=== PATIENT | female | born 1945 | race Two or more races ===

== ENCOUNTER 2023-08-30 12:47 | Inpatient (IN) | payer OTHER ==
[~2023-08-30] VITALS: Ht 167.6 cm; Wt 117.0 kg
[2023-08-30] MEDS ORDERED: VANCOMYCIN HCL 1000 MG VL ONE (13:55)
[2023-08-30] MEDS ORDERED: TRANEXAMIC ACID 20 ML ONE (13:56)
[2023-08-30] MEDS ORDERED: BUPIVACAINE 0.25% INJ 50ML VIAL ONE ×3 (13:56→16:37)
[2023-08-30] MEDS ORDERED: ceFAZolin 2 GM/D5W50ml 50 ML IV ONE (13:56)
[2023-08-30] MEDS ORDERED: KETOROLAC TROMETH 30 MG/ML 1ML VIAL ONE (14:00)
[2023-08-30] MEDS ORDERED: MORPHINE SULF PF 5 MG/10 ML VIAL ONE (14:00)
[2023-08-30] MEDS ORDERED: CELECOXIB 100 MG CAP ONE (14:09)
[2023-08-30] MEDS ORDERED: fentaNYL CITRATE 100 MCG/2 ML VL ONE (14:37)
[2023-08-30] MEDS ORDERED: MIDAZOLAM HCL 2MG/2ML 2ml VIAL (1mg/ml) ONE (14:38)
[2023-08-30] MEDS: PREGABALIN CAPSULE 75 MG CAP PO ONE (14:40)
[2023-08-30] MEDS: ACETAMINOPHEN IV 1000 MG/100ML (10MG/ML) IV ONE (14:40)
[2023-08-30] MEDS: CELECOXIB 100 MG CAP PO ONE (14:40)
[2023-08-30] MEDS ORDERED: PROPOFOL 10 MG/ML 20 ML IV ONE ×2 (15:06→15:57)
[2023-08-30] MEDS ORDERED: ePHEDrine SULFATE 50 MG/ML AMP ONE (15:06)
[2023-08-30] MEDS ORDERED: ONDANSETRON HCL 4 MG/2 ML VIAL ONE (15:17)
[2023-08-30] MEDS ORDERED: OXYCODONE W/ ACETAMINOPHEN 5/325MG TABLET PO PRN (16:45)
[2023-08-30] MEDS ORDERED: ONDANSETRON HCL 4 MG/2 ML VIAL IV PRN (16:45)
[2023-08-30] MEDS ORDERED: ACETAMINOPHEN 325 MG TAB PO PRN (16:45)
[2023-08-30] MEDS ORDERED: MORPHINE SULFATE INJ 2 MG/ml SYRG IV PRN (16:45)
[2023-08-30] MEDS ORDERED: NITROGLYCERIN 0.4 MG SL TAB SL PRN (16:45)
[2023-08-30] MEDS: LACTATED RINGER'S 1,000 ML IV SCH (16:45)
[2023-08-30 16:54] VITALS: O2SAT 94
[2023-08-30] MEDS ORDERED: HYDROmorphone HCL 2 MG/ML VL/or syr IV PRN (17:15)
[2023-08-30] MEDS ORDERED: ONDANSETRON HCL 4 MG/2 ML VIAL IV ONE (17:15)
[2023-08-30 18:26] VITALS: O2SAT 98
[2023-08-30 20:00] VITALS: PULSE 74; RESP 21; O2SAT 98
[2023-08-30] MEDS: ceFAZolin 1GM/50ML 50 ML IV SCH (20:18)
[2023-08-30 21:14] VITALS: BP 94/51; PULSE 74; RESP 21; TEMP 97.6; O2SAT 88
[2023-08-30] MEDS: SODIUM CHLOR 0.9% PF (SALINE LOCK) 10ML VIAL/SYR IV SCH (22:00)
[2023-08-30] MEDS: DOCUSATE SOD 100 MG CAP PO SCH (22:07)
[2023-08-31] VITALS (8 sets, daily range): BP systolic 102–129; BP diastolic 50–76; PULSE 67–88; RESP 16–21; TEMP 97.5–98.6; O2SAT 94–99
[2023-08-31 05:24] LABS: Basophils # (auto) 0 10 ^3/uL (0-0.2); Basophils % (auto) 0.4 % (0.0-2.0); Eosinophils # (auto) 0.2 10 ^3/uL (0-0.8); Eosinophils % (auto) 2.3 % (0.0-7.0); Hemoglobin 11.3 g/dL (12.2-16.2); Lymphocytes # (auto) 1.1 10 ^3/uL (0.4-5.4); Lymphocytes % (auto) 14.4 % (10.0-50.0); Mean Corpuscular Hemoglobin 32.3 pg (28.0-32.0); Mean Corpuscular Hgb Conc. 33.1 g/dL (32.0-36.0); Mean Corpuscular Volume 97.4 fL (80.0-100.0); Monocytes # (auto) 0.6 10 ^3/uL (0-1.3); Monocytes % (auto) 7.9 % (0.0-12.0); Neutrophils # (auto) 5.5 10 ^3/uL (1.6-8.6); Red Blood Cells 3.49 10^6/uL (4.0-5.20); Red Cell Distribution Width 13.1 % (11.8-14.3); White Blood Cell 7.4 10^3/uL (4.4-10.8)
[2023-08-31 05:28] LABS: Calcium 8.5 mg/dL (8.5-10.1); Chloride 104 mmol/L (98-107); Potassium 3.8 mmol/L (3.5-5.1); Sodium 137 mmol/L (136-145)
[2023-08-31 05:29] LABS: Anion Gap 5 (5-15); Carbon Dioxide 28 mmol/L (20-30)
[2023-08-31 05:34] LABS: BUN/Creatinine Ratio 22.1 (10.0-20.0); Blood Urea Nitrogen 15 mg/dL (9-23); Glucose 118 mg/dL (74-106)
[2023-08-31] MEDS: HYDROmorphone HCL 2 MG/ML VL/or syr IV PRN (09:37)
[2023-08-31] MEDS: PANTOPRAZOLE 40 MG TAB PO SCH (09:37)
[2023-08-31] MEDS: ENOXAPARIN SOD 40 MG/0.4 ML SYRINGE SC SCH (16:00)
== END 2023-08-31 21:35 | DRG 470 ==
LOC: SUR 12:47 → OVERFLOW 16:34 → WEST WING 18:04
PROVIDERS: ADMIT Orthopaedic Surgery Adult Reconstructive Orthopaedic Surgery; ATTEND Internal Medicine
PROC: 8E0YXBZ Computer Assisted Procedure of Lower Extremity (ICD-10-PCS; 2023-08-30)
PROC: 0SRD0J9 Replacement of Left Knee Joint with Synthetic Substitute, Cemented, Open Approach (ICD-10-PCS; principal; 2023-08-30 14:43)
DX: M17.12 Unilateral primary osteoarthritis, left knee (principal); G89.4 Chronic pain syndrome; Z80.0 Family history of malignant neoplasm of digestive organs; Z83.3 Family history of diabetes mellitus
CPT/HCPCS: 36415; 73562; 80048; 85025; 86850; 86900; 86901; 97110; 97116; 97163; 97530; G0378; J0131; J1885; J2250; J2405; J2704; J3490